=== PATIENT | male | born 1940 | race African-American/Black ===

== ENCOUNTER 2023-11-07 17:48 | Observation (INO) | payer OTHER ==
[~2023-11-07 17:48] MED LIST: Iopamidol-370 76% 500 ML MDV (1 ML CHARGE) ONE
[2023-11-07] MEDS ORDERED: Nitroglycerin 2% Ointment 1 INCH/1 GM Packet ONE (18:31)
[2023-11-07] MEDS ORDERED: Aspirin Chewable 81 MG TAB ONE (18:32)
[2023-11-07 18:38] LABS: #Basophils Less than 0.03 10x3/uL (0.0-0.2); %Basophils 0.2 % (0.0-1.0); %Eosinophils 0.8 % (0.0-10.0); %Lymphocytes 18.7 % (21.0-51.0); %Neutrophils 68.7 % (42.0-75.0); Hematocrit 38.7 % (42.0-52.0); Hemoglobin 14.4 g/dL (14.0-18.0); Mean Corpuscular HGB CONC 37.2 g/dL (32.0-36.0); Mean Corpuscular Hemoglobin 32.1 pg (27.0-31.0); Mean Corpuscular Volume 86.4 fL (78.0-98.0); Mean Platelet Volume 9.8 fL (7.4-10.4); Platelet Count 141 10x3/uL (130-400); RBC Distribution Width 12.9 % (11.5-14.5); Red Blood Cell (RBC) Count 4.48 mill/uL (4.70-6.10)
[2023-11-07 18:56] LABS: ALT (SGPT) 8 U/L (8-55); AST (SGOT) 21 U/L (5-34); Albumin 3.8 g/dL (3.4-4.8); Alkaline Phosphatase 57 U/L (40-110); Anion Gap 13 mmol/L (10-20); BUN (Urea Nitrogen) 30 mg/dL (8.4-25.7); Bilirubin, Total 1.4 mg/dL (0.2-1.2); Calc. Creatinine Clearance 0 mL/min (70-130); Carbon Dioxide 19 mmol/L (23-31); Chloride 109 mmol/L (98-107); Estimated GFR 34; Globulin 2.9 g/dL (2.4-3.5); Glucose 87 mg/dL (83-110); Lipase 17 U/L (8-78); Potassium 3.4 mmol/L (3.5-5.1); Protein, Total 6.7 g/dL (5.8-8.1); Sodium 138 mmol/L (136-145)
[2023-11-07 18:59] LABS: Troponin I 0.046 ng/mL (< 0.028)
[2023-11-07] MEDS ORDERED: Enoxaparin 30 MG (0.3 mL) SYRINGE ONE (21:19)
[2023-11-07] MEDS ORDERED: Enoxaparin 60 MG (0.6 mL) SYRINGE ONE (21:22)
[2023-11-07 22:37] VITALS: BMI 18.0
[2023-11-07] MEDS ORDERED: Nicotine 14 MG PATCH TD PRN (23:24)
[2023-11-07] MEDS ORDERED: Ondansetron ODT 4 MG TAB PO PRN (23:24)
[2023-11-07] MEDS ORDERED: Ondansetron PF 4 MG/2 ML Vial IVP PRN (23:24)
[2023-11-07] MEDS ORDERED: Acetaminophen 325 MG TAB PO PRN (23:24)
[2023-11-07 23:38] LABS: Troponin I 0.049 ng/mL (< 0.028)
[2023-11-07] MEDS: Memantine 5 MG TAB PO SCH (23:43)
[2023-11-07] MEDS: Atorvastatin Calcium 20 MG TAB PO SCH (23:44)
[2023-11-07] MEDS: NIFEdipine XL 30 MG ER.TAB PO SCH (23:44)
[2023-11-08 02:26] LABS: Troponin I 0.051 ng/mL (< 0.028)
[2023-11-08 05:08] LABS: Anion Gap 15 mmol/L (10-20); BUN (Urea Nitrogen) 25 mg/dL (8.4-25.7); Calc. Creatinine Clearance 34 mL/min (70-130); Calcium 8.7 mg/dL (7.8-10.44); Carbon Dioxide 18 mmol/L (23-31); Chloride 110 mmol/L (98-107); Estimated GFR 46; Glucose 68 mg/dL (83-110); Potassium 3.5 mmol/L (3.5-5.1); Sodium 139 mmol/L (136-145)
[2023-11-08] MEDS: QUEtiapine 25 MG TAB PO SCH (06:35)
[2023-11-08 07:27] LABS: #Basophils 0.03 10x3/uL (0.0-0.2); %Basophils 0.6 % (0.0-1.0); %Lymphocytes 23.5 % (21.0-51.0); %Monocytes 11.9 % (0.0-10.0); %Neutrophils 62.6 % (42.0-75.0); Hematocrit 37.8 % (42.0-52.0); Hemoglobin 13.4 g/dL (14.0-18.0); Mean Corpuscular HGB CONC 35.4 g/dL (32.0-36.0); Mean Corpuscular Hemoglobin 30.7 pg (27.0-31.0); Mean Corpuscular Volume 86.5 fL (78.0-98.0); Mean Platelet Volume 10.2 fL (7.4-10.4); Platelet Count 137 10x3/uL (130-400); RBC Distribution Width 13.1 % (11.5-14.5); Red Blood Cell (RBC) Count 4.37 mill/uL (4.70-6.10)
[2023-11-08] MEDS ORDERED: Famotidine 20 MG TAB PO SCH (09:00)
[2023-11-08] MEDS: Potassium Chloride 10 MEQ TAB PO SCH (09:23)
[2023-11-08] MEDS: NIFEdipine XL 30 MG ER.TAB PO SCH (09:23)
[2023-11-08] MEDS: Aspirin 81 mg Enteric Coated Tablet PO SCH (09:23)
[2023-11-08] MEDS: Clopidogrel Bisulfate 75 MG TAB PO SCH (09:23)
[2023-11-08] MEDS: Famotidine 20 MG TAB PO SCH (09:24)
[2023-11-08] MEDS: Famotidine/PF 20 mg/2ml Vial SLOW IVP SCH (09:24)
[2023-11-08 11:41] VITALS: BMI 18.0
[2023-11-08 12:09] VITALS: BP 134/63; TEMP 98
[2023-11-08] MEDS ORDERED: Atorvastatin Calcium 20 MG TAB PO SCH (21:00)
[2023-11-08] MEDS ORDERED: Terazosin HCl 5 MG CAP PO SCH (21:00)
[2023-11-08] MEDS ORDERED: Memantine 5 MG TAB PO SCH (21:00)
== END 2023-11-08 16:45 | disposition home or self-care (01) ==
LOC: ERS 17:48 → 2NO 21:20
PROVIDERS: ADMIT Student in an Organized Health Care Education/Training Program; ATTEND Internal Medicine
PROC: B246ZZZ Ultrasonography of Right and Left Heart (ICD-10-PCS; principal; 2023-11-07)
DX: I49.9 Cardiac arrhythmia, unspecified (principal); I12.9 Hypertensive chronic kidney disease with stage 1 through stage 4 chronic kidney disease, or unspecified chronic kidney disease; N18.9 Chronic kidney disease, unspecified; E11.22 Type 2 diabetes mellitus with diabetic chronic kidney disease; F03.90 Unspecified dementia, unspecified severity, without behavioral disturbance, psychotic disturbance, mood disturbance, and anxiety; E78.5 Hyperlipidemia, unspecified; R79.89 Other specified abnormal findings of blood chemistry; E87.6 Hypokalemia; I25.10 Atherosclerotic heart disease of native coronary artery without angina pectoris; Z88.0 Allergy status to penicillin; Z88.2 Allergy status to sulfonamides; Z79.899 Other long term (current) drug therapy; Z79.82 Long term (current) use of aspirin; F17.210 Nicotine dependence, cigarettes, uncomplicated
CPT/HCPCS: 71045; 71275; 80048; 80053; 83690; 83880; 84484 ×3; 85025 ×2; 85379; 93005; 93306; J1650; Q9967; S0028; 36415; 96374; G0378